=== PATIENT | female | born 1990 | race Caucasian/White ===

== ENCOUNTER → 2021-11-29 11:48 | Outpatient (BNVA) | payer OTHER, MEDICAID, SELFPAY | PROVIDERS: Visit Provider Advanced Practice Midwife ==

== ENCOUNTER → 2022-03-21 10:43 | Outpatient (BNVA) | payer OTHER, MEDICAID, SELFPAY | PROVIDERS: Visit Provider Advanced Practice Midwife | DX: Z30.017 Encounter for initial prescription of implantable subdermal contraceptive (principal); Z30.09 Encounter for other general counseling and advice on contraception | CPT/HCPCS: 11981 ==

== ENCOUNTER 2023-05-31 08:53 | Outpatient (AMB) | payer BC, MEDICAID, SELFPAY ==
--- NOTE | 2023-05-31 08:56 | A.OFFVIS_ITS ---
Intake Vital Signs 05/31/23 09:04 Height 5 ft 5 in Weight 209 lb BMI 34.8 BP 118/62 Blood Pressure Location Rt brachial Position Sitting Intake Visit Reasons: Consult Nexplanon removal Intake Note: Pt c/o: pt states the first year nexplonon didnt have any side effects but the last year she feels her hormones and emotions are up and down also having menses every other week Lead Bi Developer Required: No Accompanied by: Self / Same As Patient Allergies azithromycin [From Zithromax] Allergy (Unknown, Verified 05/31/23 09:04) ANAPHYLAXIS Penicillins Allergy (Unknown, Verified 05/31/23 09:04) ANAPHYLAXIS Medication List - Last Reconciled 05/31/23 by Elaine Gotti CNM buprenorphine ER (Sublocade) mg subcut etonogestrel (Nexplanon) subdermal Is last menstrual period known: Yes Last menstrual period: 05/30/23 HPI Consult Nexplanon removal HPI Details Patient wants to talk about taking her Nexplanon out. She has had 1 before and it was fine and the 1st year this 1 was in she did not get a period at all but now it is very irregular and scattered and she feels like it is really messing with her hormones. She has been seeing another physician in [place] who did some testing on her home in [place] and said that they were all off. She just does not want to get before she was using the Nexplanon and other hormonal methods of control she used to get very irregular periods that lasted 5 days she would feel little premenstrual ahead of time but she was fine with that. She is healthy otherwise her only other challenges weight gain she has trying very very hard to eat healthy and lose the weight but it does not seem to want to go off she works out at least 6 days a week. 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 She has been talking to her other doctor and she thinks that maybe it is time to go to a hormone free IUD. [facility] Surgical History Previous back surgery Family History Maternal Grandmother Cancer of unknown origin Social History Alcohol intake: never e-Cigarette/Vaping Use: Currently Using Sexual orientation: Straight/Heterosexual Gender identity: Female Female Reproductive History Menstrual Date of last menstrual period: 05/30/23 Total pregnancies: 2 Ab spontaneous: 0 Physical Exam Vital Signs: Last Vital Signs BP 118/62 05/31/23 09:04 BMI result Body Mass Index 34.8 Assessment & Plan Assessment & Plan (1) control counseling: Code(s): Z30.09 - Encounter for other general counseling and advice on contraception (2) Adverse reaction to hormonal drug: Code(s): T38.805A - Adverse effect of unspecified hormones and synthetic substitutes, initial encounter (3) Encounter for initial prescription of intrauterine contraceptive device (IUD): Code(s): Z30.014 - Encounter for initial prescription of intrauterine contraceptive device Plan Patient wants to talk about taking her Nexplanon out. She has had 1 before and it was fine and the 1st year this 1 was in she did not get a period at all but now it is very irregular and scattered and she feels like it is really messing with her hormones. She has been seeing another physician in [place] who did some testing on her home in [place] and said that they were all off. She just does not want to get . before she was using the Nexplanon and other hormonal methods of control, she used to get very irregular periods that lasted 5 days she would feel little premenstrual ahead of time but she was fine with that. She is healthy otherwise- her only other challenges weight gain she has trying very very hard to eat healthy and lose the weight but it does not seem to want to go off she works out at least 6 days a week. 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 She has been talking to her other doctor and she thinks that maybe it is time to go to a hormone free IUD. full discussion about the ParaGard IUD took place including side effects potential risks and issues with insertion. It would be important to put it in on her heaviest day of her period for which for her is day 1. She has been getting her period regularly. She is on day 2 of her period now however we still have to order the method after full discussion about the method and its side effects including heavier menses. She signed the insurance form to order a ParaGard. Also since she has not delivered a baby I am prescribing a misoprostol tablet to be place in her vagina on the morning of insertion. she normally uses tampons but on that day ever she will use a pad so that it does not interfere with the dissolving of the misoprostol prior to insertion discussed the purpose of it. I reviewed exactly how the exam and insertion process will go and after it is in and she is past that step we will schedule the Nexplanon removal there may be time needed for the hormone effect of the Nexplanon to wash out of her system and we did discuss this as well. Patient is happy with this plan. Medications: New misoprostol Place in vagina within 4 hours prior to planned IUD procedure 200 mcg vaginal ONCE 1 tab 0RF Coding Level of Care Code Est Pt Level 3 (51977) Diagnoses control counseling Z30.09 Adverse reaction to hormonal drug T38.805A Encounter for initial prescription of intrauterine contraceptive device (IUD) Z30.014
[2023-05-31 09:04] VITALS: BP 118/62; BMI 34.8
== END 2023-05-31 09:39 | disposition home or self-care (01) ==
LOC: HO.HWS 08:54
PROVIDERS: Visit Provider Advanced Practice Midwife
DX: Z30.09 Encounter for other general counseling and advice on contraception (principal); T38.805A Adverse effect of unspecified hormones and synthetic substitutes, initial encounter; Z30.014 Encounter for initial prescription of intrauterine contraceptive device
CPT/HCPCS: 99213

== ENCOUNTER → 2023-05-31 08:53 | Outpatient (BNVA) | payer BC, MEDICAID, SELFPAY | PROVIDERS: Visit Provider Advanced Practice Midwife ==

== ENCOUNTER 2023-06-28 13:48 | Outpatient (AMB) | payer BC, SELFPAY ==
--- NOTE | 2023-06-28 14:29 | A.OFFVIS_ITS ---
Intake Vital Signs 06/28/23 14:30 Height 5 ft 5 in Weight 212 lb BMI 35.3 BP 124/72 Intake Visit Reasons: Paragard insertion Intake Note: Patient states she also needs Nexplanon removed because she can't keep taking time from work. Head Of Marketing Analytics Required: No Information Interpreted: non-clinical & clinical Computer Systems Software Architect: Computer Systems Software Architect Present ([place]) Allergies azithromycin [From Zithromax] Allergy (Unknown, Verified 06/28/23 14:30) ANAPHYLAXIS Penicillins Allergy (Unknown, Verified 06/28/23 14:30) ANAPHYLAXIS Medication List - Last Reconciled 06/28/23 by Elaine Gotti CNM buprenorphine ER (Sublocade) mg subcut etonogestrel (Nexplanon) subdermal misoprostol 200 mcg vaginal ONCE Is last menstrual period known: Yes Last menstrual period: 06/27/23 Post menopausal: No Patient : No HPI Paragard insertion HPI Details Note this is a visit that was planned to be done with patients menses for insertion of ParaGard and then a subsequent visit is supposed to be planned for removal of the Nexplanon this visit was requested 3 and half weeks ago on 05/31/2023 and the ParaGard needed to be ordered.. Patient says she was told at the front office director and on the phone that they could both be done at the same time which is not usual and it which is not what was discussed at the last visit between the patient and myself patient very much wants to have them done if it all possible today and her priority is to get the Nexplanon taken out 1st because it is really messing with her hormones and she does not like how she feels both mood fisher and also with the irregular bleeding and waking she is sexually active and very much needs a method of reliable control and does not want to get . Started with her periods last night and it was heavier but it is very light today she put the misoprostol tablet in her vagina at 10:00 and she has had some cramping but not much but is not bleeding much. [facility] Surgical History Previous back surgery Family History Maternal Grandmother Cancer of unknown origin Social History Alcohol intake: never e-Cigarette/Vaping Use: Currently Using Sexual orientation: Straight/Heterosexual Gender identity: Female Female Reproductive History Menstrual Date of last menstrual period: 06/27/23 control method: implanted Physical Exam Vital Signs: Last Vital Signs BP 124/72 06/28/23 14:30 BMI result Body Mass Index 35.3 Office Procedures IUD Insert/Removal Details Details: ---Patient is here for her IUD removal and insertion. Bimanual exam was done. Her uterus is firm, nontender, and appropriate sized, and is midposition, w light menses and misoprostel table mostly undissolved . The cervix was swabbed with Betadine. Tenaculum was placed on the cervix slowly to minimize cramping. The uterus was sounded slowly and gently and showed a measurement of 7 cm. The IUD was removed from its package, after checking identifying information and lot dates and expiration dates and and gently inserted into the os, as per the IUD insertion procedure. The strings were then trimmed to 3- centimetres. The tenaculum was removed and gentle pressure applied with a swab, until any bleeding subsided from the tenaculum sites. The speculum was gently removed. The patient sat up. I Reviewed what to expect, and what indications would necessitate a call. Pt to call for fever, untoward pain or cramping. I reviewed any appropriate backup method. Pt to return for recheck as scheduled. [id number] Insertion Procedure code (CPT) selection complete Contraception Insert/Removal Details Details: Nexplanon Remova Procedure The patient was placed in a supine position with her non dominant hand resting under her head. The insertion site was located: 8-10cm from the medial epicondyle notch of the humerus, posterior to the sulcus, between the triceps and biceps muscle. The area of the previous implant was identified and the distal tip located. This area was cleansed with an alcohol prep and 3 ml of 1% Lidocaine on a 25 gauge needle and syringe was utilized for adequate anesthesia to the insertion site. After ascertaining adequate anesthesia, the area was prepped with Betadine solution. The skin over the distal tip was incised with a #11 blade scalpel and the capsule was located and entered freeing the implant from the canal. The implant was removed with a gentle tug using a mosquito clamp and removed intact. . Direct pressure was applied to the insertion site for hemostasis, minimal bleeding was observed, continued for several minutes only abating by pressure. Steri strips, Tegaderm covering, gauze pads, and La wrap dressing were secured with paper tape. A 2nd pressure wrap was also applied to try and maintain more pressure on the site and I instructed the patient to try an leave that there at leastt till dinner time before removing it --she can leave the Tegaderm dressing on then for at least 3 days to maintain sterility and ensure optimal closure and healing. The implant was palpable underneath the skin by myself and the patient. The patient tolerated the procedure well and left the office in good condition. 79995 - Removal Office Meds Bhargavi Chan 380A Performing Provider: Elaine Gotti CNM Administered by: MARCIA Starr on 06/28/23 15:49 Dose Route Admin Location Lot Number Expiration Date [facility] [employer] 1 device intrauterine [id number] 05/26/29 [id number] [employer] Assessment & Plan Assessment & Plan (1) Encounter for initial prescription of intrauterine contraceptive device (IUD): Code(s): Z30.014 - Encounter for initial prescription of intrauterine contraceptive device (2) control counseling: Code(s): Z30.09 - Encounter for other general counseling and advice on contraception (3) Adverse reaction to hormonal drug: Code(s): T38.805A - Adverse effect of unspecified hormones and synthetic substitutes, initial encounter (4) Encounter for Nexplanon removal: Code(s): Z30.46 - Encounter for surveillance of implantable subdermal contraceptive (5) Encounter for IUD insertion: Comment: ParaGard inserted 06/28/2023, same day as Nexplanon removal. Code(s): Z30.430 - Encounter for insertion of intrauterine contraceptive device Plan Patient had desired it all to be done today though that was not the plan as per what was discussed at the last visit. However the patient voiced strong desire to have this done today if at all possible so since her priority was the Nexplanon removal we did that 1st. At that time there was a change in the schedule and we then proceeded to the ParaGard insertion patient did find the passage of the sound and the it IUD painful but she did not have a vasovagal response. The ParaGard IUD was inserted smoothly without trauma into a 7 cm cervix the internal os was still somewhat tight having not responded too much to the misoprostol tablet which was softened but not dissolved. Patient is to keep the pressure dressing on the Nexplanon removal site for several hours and then she can remove that 1 layer at a time there are 2 layers- and leave the Tegaderm on then for the next 3 days to maintain sterility.\ We will see her in 6 weeks to check on the IUD and also to check on the Nexplanon removal site. Discussed care of menses with Bhargavi insight I recommend no condoms and no sex for this week. In the future if her vagina is dry at the end of a menses I recommend wetting her clean finger to help will vagina as she removes tampons to avoid out with the tampon. Orders: Orders AMB IUD Insertion/Removal - Practice Supplied Today Z30.430 - Encounter for insertion of intrauterine contraceptive device AMB Nexplanon/Implanon Insertion - Patient Supply Today T38.805A - Adverse effect of unspecified hormones and synthetic substitutes, initial encounter, Z30.014 - Encounter for initial prescription of intrauterine contraceptive device, Z30.09 - Encounter for other general counseling and advice on contraception, Z30.46 - Encounter for surveillance of implantable subdermal contraceptive Coding Level of Care Code Est Pt Level 4 (16249) Diagnoses Encounter for initial prescription of intrauterine contraceptive device (IUD) Z30.014 control counseling Z30.09 Adverse reaction to hormonal drug T38.805A Encounter for Nexplanon removal Z30.46 Encounter for IUD insertion Z30.430 CPT Codes Details - CPT: 09686-OQA Insertion ([id number]) Details - Contraception: 52120 - Removal ([id number])
[2023-06-28 14:30] VITALS: BP 124/72; BMI 35.3
== END 2023-06-28 15:58 | disposition home or self-care (01) ==
PROVIDERS: Visit Provider Advanced Practice Midwife
DX: Z30.430 Encounter for insertion of intrauterine contraceptive device (principal); Z30.46 Encounter for surveillance of implantable subdermal contraceptive
CPT/HCPCS: 11982; 58300

== ENCOUNTER → 2023-06-28 13:48 | Outpatient (BNVA) | payer BC, SELFPAY | PROVIDERS: Visit Provider Advanced Practice Midwife | DX: Z30.430 Encounter for insertion of intrauterine contraceptive device (principal); Z30.46 Encounter for surveillance of implantable subdermal contraceptive | CPT/HCPCS: 11982; 58300; J7300 ==

== ENCOUNTER 2024-03-03 21:23 | Emergency (ER) | payer BC, SELFPAY ==
--- NOTE | 2024-03-03 | ECG_ITS ---
Test Reason : CHEST PAIN Blood Pressure : / mmHG Vent. Rate : 100 BPM Atrial Rate : 100 BPM P-R Int : 150 ms QRS Dur : 092 ms QT Int : 356 ms P-R-T Axes : 043 016 067 degrees QTc Int : 459 ms Artifact Normal sinus rhythm Nonspecific T wave changes Abnormal ECG When compared with ECG of 19-DEC-2009 00:18, Nonspecific T wave abnormality now evident in Lateral leads Referred By: Generic ED Physician Electronically Signed By:Herminio Will
[2024-03-03 21:29] VITALS: BP 149/77; PULSE 100; RESP 18; TEMP 37; O2SAT 100; BMI 33.5
[2024-03-03 22:09] LABS: MANUAL DIFF FLAG NO
[2024-03-03 22:17] LABS: Basophils Percent Auto 0.3 % (0-2); Eosinophils Absolute Auto 0.4 X10*3/uL (0.0-0.4); Eosinophils Percent Auto 4.2 % (0-4); Hemoglobin 12.3 g/dl (12.0-16.0); Imm Gran Abs Auto 0.02 X10*3/uL (0.00-0.03); Imm Gran Pct Auto 0.2 % (0.0-0.4); Lymphocytes Absolute Auto 2.5 X10*3/uL (1.2-4.9); Lymphocytes Percent Auto 26.9 % (20-40); Mean Corpuscular HGB Conc 33.2 g/dl (31.0-35.0); Mean Corpuscular Hemoglobin 28.8 pg (27.0-33.0); Mean Corpuscular Volume 86.7 fL (80.0-98.0); Mean Platelet Volume 10.4 fL (9.4-12.3); Monocytes Absolute Auto 0.7 X10*3/uL (0.1-1.2); Monocytes Percent Auto 7.9 % (2-11); Neutrophils Absolute Auto 5.6 x10*3/uL (2.0-8.3); Neutrophils Percent Auto 60.5 % (45-73); Platelet Count 285 X10*3/uL (160-400); Red Blood Count 4.27 X10*6/uL (4.20-5.50); Red Cell Distribution Width 12.9 % (11.0-16.0); White Blood Count 9.2 X10*3/uL (4.8-10.8)
[2024-03-03 22:25] LABS: Alanine Aminotransferase 32 U/L (0-31); Albumin Level 4.3 g/dL (3.5-5.0); Alkaline Phosphatase 67 U/L (39-117); Anion Gap 13 (12-20); Aspartate Amino Transferase 79 U/L (5-31); Bilirubin Total 0.4 mg/dL (0.0-1.0); Blood Urea Nitrogen 6 mg/dL (9-16); Calcium 9.6 mg/dL (8.4-10.2); Carbon Dioxide 28 mmol/L (22-29); Chloride 107 mmol/L (96-108); Creatinine Clr Calc Pharmacy 121.6; Estimated Glomerular Filt Rate > 60; Glucose Random 91 mg/dL (60-115); Magnesium 1.9 mg/dL (1.6-2.6); Potassium 4.5 mmol/L (3.3-5.1); Sodium 143 mmol/L (135-145); Total Protein 7.2 g/dL (6.5-8.0)
[2024-03-03 22:32] LABS: Troponin-I High Sensitivity < 2.7 ng/L (<3.5-17.0)
[2024-03-03 22:54] LABS: Influenza A PCR NEGATIVE (Negative); Influenza B PCR NEGATIVE (Negative); Resp Syncy Virus RNA Qual PCR NEGATIVE (Negative); SARS COV2 PCR INHOUSE NEGATIVE (Negative)
== END 2024-03-04 00:31 | disposition left against medical advice (07) ==
PROVIDERS: Emergency Provider Emergency Medicine
DX: R07.9 Chest pain, unspecified (principal); Z11.52 Encounter for screening for COVID-19
CPT/HCPCS: 0241U; 80053; 83735; 84484; 85025; 93005; 99283

== ENCOUNTER → 2024-03-03 21:24 | Outpatient (BNV) | payer BC, SELFPAY | PROVIDERS: Emergency Provider Emergency Medicine; Visit Provider Internal Medicine Cardiovascular Disease | DX: R94.31 Abnormal electrocardiogram [ECG] [EKG] (principal) | CPT/HCPCS: 93010 ==

== ENCOUNTER 2024-06-10 17:44 | Emergency (ER) | payer BC, SELFPAY ==
--- NOTE | ~2024-06-10 | CT_ITS ---
EXAMINATION: CT ABDOMEN AND PELVIS WITH CONTRAST CLINICAL INFORMATION: Right lower abdominal pain. COMPARISON: None available. TECHNIQUE: Multidetector volumetric images were obtained from the superior aspect of the liver through the pubic symphysis following administration 85 mL of Omnipaque 350 intravenous contrast. Sagittal and coronal reformatted images were obtained on the technologist's workstation. Oral contrast: No This CT examination was performed using dose optimization techniques as appropriate, variously including the following: *Automated exposure control *Adjustment of mA and/or kV according to patient size (this includes techniques or standardized protocols for targeted exams where dose is matched to indication/reason for exam; i.e. extremities or head) *Use of iterative reconstruction technique DLP: 85 mGy-cm FINDINGS: LUNG BASES: The visualized lung bases are unremarkable. LIVER, GALLBLADDER, AND BILIARY TREE: The liver is normal in size, shape, and attenuation. No focal hepatic lesion or biliary ductal dilatation is present. The gallbladder is unremarkable with no evidence of radiopaque gallstones, gallbladder wall thickening, or obvious pericholecystic inflammatory changes. PANCREAS: Unremarkable. SPLEEN: Unremarkable. ADRENAL GLANDS: Unremarkable. KIDNEYS AND URETERS: The kidneys are normal in size, shape, and attenuation. No hydronephrosis, hydroureter, or calculi seen. No perinephric stranding. Contrast material is present in the renal collecting systems which limits sensitivity for punctate calculi. BLADDER: Unremarkable. GASTROINTESTINAL TRACT: Stomach, small bowel, and colon are normal in caliber. No bowel wall thickening or surrounding inflammatory changes. Moderate volume stool is present in the colon. Appendix is normal. No intraperitoneal free fluid or free air. ABDOMINAL WALL: Tiny fat-containing umbilical hernia. No bowel involvement. LYMPH NODES: Multiple surgical clips are present in the left hemipelvis. No appreciable adenopathy. VASCULAR: Unremarkable. PELVIC VISCERA: IUD is present in the uterus. Uterus normal in size. No adnexal lesions. OSSEOUS STRUCTURES: Status post lumbosacral fusion. No acute osseous findings. Mild degenerative disc disease in the lower thoracic spine. Mild osteoarthritis in the hips and SI joints. CT/CT abdomen pelvis w IV con IMPRESSION: 1. No acute intra-abdominal or intrapelvic abnormalities. Normal appendix. 2. Moderate volume of stool in the colon.
[2024-06-10 17:48] VITALS: BP 166/94; PULSE 96; RESP 16; TEMP 36.8; O2SAT 100; BMI 29.0
--- NOTE | 2024-06-10 18:33 | ED_ITS ---
HPI - Abdominal Pain General Chief Complaint: Abdominal Pain Stated Complaint: LRQ abd pain Time Seen by Provider: 06/10/24 23:05 Source: patient, RN notes reviewed and old records reviewed Mode of arrival: ambulatory Limitations: no limitations History of Present Illness ED Provider: Chidi COCHRAN narrative: 33-year-old female who denies any past medical history presents for evaluation of abdominal pain. Patient reports while on vacation in [place] she was experiencing mild right lower abdominal pain. The pain has been worsening. She reports associated nausea and chills. She denies any urinary frequency, burning with urination, vaginal bleeding or discharge She reports that she has an IUD Her pain is a 6/10, constant but worse with movement Related Data Home Medications ?Medication ?Instructions ?Recorded ?Confirmed buprenorphine 100 mg/0.5 mL mg subcut 05/31/23 06/28/23 solution,exten.rel.subcutaneous syringe (Sublocade) etonogestrel 68 mg subdermal subdermal 05/31/23 06/28/23 implant (Nexplanon) Previous Rx's ?Medication ?Instructions ?Recorded misoprostol 200 mcg tablet 200 mcg vaginal ONCE #1 tab 05/31/23 peg 3350-electrolytes 236 240 ml PO Q10M #4,000 mL 06/11/24 gram-22.74 gram-6.74 gram-5.86 gram solution (GaviLyte-G) Allergies Allergy/AdvReac Type Severity Reaction Status Date / Time azithromycin [From Zithromax] Allergy Unknown ANAPHYLAXIS Verified 06/10/24 17:49 Penicillins Allergy Unknown ANAPHYLAXIS Verified 06/10/24 17:49 Review of Systems Constitutional: Denies body ache(s), Reports chills, Denies fever(s), Denies frequent falls and Denies headache(s) Eyes: Denies blurry vision Denies vertigo, Denies dizziness and Denies headache(s) Cardiovascular: Denies chest pain and Denies dyspnea Respiratory: Denies cough and Denies dyspnea Gastrointestinal: Reports abdominal pain, Reports nausea and Denies vomiting Genitourinary: Denies abnormal menses, Denies dysuria, Denies pelvic pain, Denies flank pain and Denies vaginal discharge Musculoskeletal: Denies back pain Skin/Breast: Denies rash Denies vertigo, Denies dizziness, Denies frequent falls and Denies headache(s) [facility] Past Medical History Surgical History Previous back surgery Family History Family History Maternal Grandmother Cancer of unknown origin Social History Social History Alcohol intake: never Smoked in Last 30 Days: No e-Cigarette/Vaping Use: Currently Using Use of substances other than those prescribed or required for medical reasons: No Advance Directives: No Advance Directives Information Provided: No Patient : No Sexual orientation: Straight/Heterosexual Gender identity: Female Physical Exam ED Vital Signs: Vital Signs - 24 hr 06/10/24 17:48 06/10/24 21:18 06/11/24 00:14 Temperature 98.2 F 98.0 F 97.8 F Pulse Rate 96 81 82 Respiratory Rate 16 12 14 Blood Pressure 166/94 H 126/88 108/60 Pulse Oximetry 100 100 99 Oxygen Delivery Method Room Air Room Air Room Air BMI result Body Mass Index 29.0 Const General: healthy appearing, comfortable, no acute distress, alert and awake Nutritional Appearance: well nourished Orientation/consciousness: patient oriented x3 HENMT Head: Yes normocephalic and Yes atraumatic Eyes Eyelids: Yes eyelids normal Conjunctivae: conjunctivae normal Sclerae: sclerae normal Corneas: corneas normal Pupils: Equal, round and reactive pupils present EOM: EOMs intact bilaterally Neck Neck: Yes full ROM Resp Effort & Inspection: normal respiratory effort, able to speak in complete sentences and not labored Cardio Rate: regular rate Rhythm: regular rhythm GI Other: Tenderness to palpation of the right lower quadrant with rebound tenderness to the right lower quadrant during palpation of the left lower quadrant Inspection: No distended Palpation (GI): Soft to palpation, not firm, Tenderness to palpation present (GI) in the RLQ, Guarding due to palpation present (GI) and not rigid Auscultation: normoactive bowel sounds Skin General skin exam: elasticity normal Neuro General: patient oriented x3 Cranial nerves: Yes Equal, round and reactive pupils present and Yes Bilaterally intact EOM present Cognition (Neuro): normal cognition Extrem Other: Moving all extremities well without any obvious deformities Course Course Course Narrative: This is an RME done by FELTON Garcia: Additional HPI, ROS, PE not included below will be deferred to primary provider. 33-year-old female presents with right lower quadrant pain for the past 3 days with anorexia, nausea worsening. Was seen at urgent care and told to come into the emergency department. On exam right lower quadrant discomfort Medical Decision Making Medical Decision Making [facility] Narrative: Patient has had 3 days of right lower quadrant abdominal pain with associated GI symptoms of nausea. She states that she had diarrhea 1 time when she 1st began to have pain. Her vital signs are within normal limits, she is not septic. Her white count is within normal limits. However given her level of discomfort, location of the pain with rebound tenderness, plan for CT scan of the abdomen pelvis to evaluate for acute appendicitis. Patient does have 21-50 white cells and a urinalysis with moderate esterase, no evidence of contamination. She has no symptoms at this time Differential Diagnosis Differential Diagnoses: The differential diagnosis associated with the presentation includes Abdominal pain Acute appendicitis Constipation Diverticulitis UTI Obstructive uropathy Lab Data [facility] Lab Attestation statement: I reviewed the patient's lab results. No leukocytosis or anemia. Normal platelet count. No electrolyte abnormalities. The patient is not 06/10/24 18:49 06/10/24 18:49 Labs: Lab Results 06/10/24 Range/Units 18:49 WBC 5.5 (4.8-10.8) X10*3/uL RBC 4.40 (4.20-5.50) X10*6/uL Hgb 12.8 (12.0-16.0) g/dl Hct 37.8 (37.0-47.0) % MCV 85.9 (80.0-98.0) fL MCH 29.1 (27.0-33.0) pg MCHC 33.9 (31.0-35.0) g/dl RDW 12.8 (11.0-16.0) % Plt Count 310 (160-400) X10*3/uL MPV 10.0 (9.4-12.3) fL Immature Gran % (Auto) 0.2 (0.0-0.4) % Neut % (Auto) 47.2 (45-73) % Lymph % (Auto) 43.2 H (20-40) % [place] % (Auto) 6.0 (2-11) % Eos % (Auto) 2.9 (0-4) % Baso % (Auto) 0.5 (0-2) % Lymph # (Auto) 2.4 (1.2-4.9) X10*3/uL [place] # (Auto) 0.3 (0.1-1.2) X10*3/uL Eos # (Auto) 0.2 (0.0-0.4) X10*3/uL Baso # (Auto) 0.0 (0.0-0.2) X10*3/uL Abs Immat Gran (auto) 0.01 (0.00-0.03) X10*3/uL Absolute Neuts (auto) 2.6 (2.0-8.3) x10*3/uL Absolute Nucleated RBC 0.000 (0.0-0.012) X10*3/uL Nucleated RBC % (auto) 0.0 (0.0-0.2) /100WBC Sodium 141 (135-145) mmol/L Potassium 4.0 (3.3-5.1) mmol/L Chloride 105 (96-108) mmol/L Carbon Dioxide 29 (22-29) mmol/L Anion Gap 11 L (12-20) BUN 4 L (9-16) mg/dL Creatinine 0.64 (0.5-1.4) mg/dL Estim Creat Clear Calc 122.9 Estimated GFR > 60 Random Glucose 85 (60-115) mg/dL Calcium 9.3 (8.4-10.2) mg/dL Magnesium 1.9 (1.6-2.6) mg/dL Total Bilirubin 0.4 (0.0-1.0) mg/dL AST 18 (5-31) U/L ALT 8 (0-31) U/L Alkaline Phosphatase 64 (39-117) U/L Total Protein 7.3 (6.5-8.0) g/dL Albumin 4.3 (3.5-5.0) g/dL Lipase 13 (8-78) U/L Beta HCG, Quant < 2 mIU/mL Urine Color Yellow Urine Appearance Clear Urine pH 6.5 (5.0-9.0) Ur Specific [place] <= 1.005 (1.005-1.025) Urine Protein Negative (Neg-Trace) mg/dL Urine Glucose (UA) Negative (Negative) mg/dL Urine Ketones Negative (Negative) mg/dL Urine Blood Negative (Negative) Urine Nitrite Negative (Negative) Ur Leukocyte Esterase Moderate (2+) H (Negative) Urine RBC 0-2 (0-2) /HPF Urine WBC 21-50 H (0-5) /HPF Ur Squamous Epith Cells 3-5 (0-2) /HPF Urine Bacteria None Seen (None Seen) Hyaline Casts 0-2 (0-2) /LPF Urine Test NEGATIVE (NEGATIVE) Independent Interpretation I performed an independent interpretation of an: CT Scan Interpretation: Agree with Radiology interpretation, moderate stool burden specifically in the right abdomen Radiology Impression Discussion of test interpretation with radiology: I have reviewed the radiologist's reading. Radiologist Impression: CT/CT abdomen pelvis w IV con IMPRESSION: 1. No acute intra-abdominal or intrapelvic abnormalities. Normal appendix. 2. Moderate volume of stool in the colon. Medications Administered Discontinued Medications Generic Name Dose Route Start Last Admin Trade Name Freq PRN Reason Stop Dose Admin Sodium Chloride 1,000 mls @ 999 mls/hr 06/10/24 23:15 06/10/24 23:34 Ns IV 06/11/24 00:15 999 mls/hr .Q1H1M MARIANO Administration Iohexol 85 ml 06/10/24 23:56 06/10/24 23:56 Iohexol 350 Mg/Ml 100 Ml Infus..Btl IV 06/10/24 23:57 85 ml ONCE ONE Administration Ketorolac Tromethamine 30 mg 06/10/24 23:09 06/10/24 23:34 Ketorolac Tromethamine 30 Mg/Ml Vial IVPUSH 06/10/24 23:10 30 mg ONCE ONE Administration Ondansetron HCl 4 mg 06/10/24 23:09 06/10/24 23:34 Ondansetron Hcl 4 Mg/2 Ml Vial IVPUSH 06/10/24 23:10 4 mg ONCE ONE Administration Discharge Plan Discharge Clinical Impression: Constipation Patient Disposition: Home, Self-Care Instructions: Constipation (ED), High Fiber Diet (ED) Additional Instructions: Your workup showed moderate constipation, specifically on the right abdomen where your pain is I recommend that you continue the stool softener, increase fiber in your diet or use fiber supplementation Increase water intake You may use the GoLYTELY as prescribed Follow-up with GI for chronic constipation Return for new or worsening symptoms Prescriptions: New peg 3350-electrolytes [GaviLyte-G] 236-22.74-6.74 -5.86 gram recon soln 240 ml PO Q10M Qty: 4000 0RF Rx Instructions: until fecal effluent is clear No Action Sublocade 100 mg/0.5 mL solution, extended rel syringe subcut Nexplanon 68 mg implant subdermal misoprostol 200 mcg tablet 200 mcg vaginal ONCE Qty: 1 0RF Rx Instructions: Place in vagina within 4 hours prior to planned IUD procedure Referrals: Ricardo Hollis MD [Physician] - (chronic constipation) Stand Alone Forms: Work/School Release Print Language: Khmer
[2024-06-10 19:00] LABS: MANUAL DIFF FLAG NO
[2024-06-10 19:01] LABS: Basophils Percent Auto 0.5 % (0-2); Eosinophils Absolute Auto 0.2 X10*3/uL (0.0-0.4); Eosinophils Percent Auto 2.9 % (0-4); Hematocrit 37.8 % (37.0-47.0); Hemoglobin 12.8 g/dl (12.0-16.0); Imm Gran Abs Auto 0.01 X10*3/uL (0.00-0.03); Imm Gran Pct Auto 0.2 % (0.0-0.4); Lymphocytes Absolute Auto 2.4 X10*3/uL (1.2-4.9); Lymphocytes Percent Auto 43.2 % (20-40); Mean Corpuscular HGB Conc 33.9 g/dl (31.0-35.0); Mean Corpuscular Hemoglobin 29.1 pg (27.0-33.0); Mean Corpuscular Volume 85.9 fL (80.0-98.0); Monocytes Absolute Auto 0.3 X10*3/uL (0.1-1.2); Neutrophils Absolute Auto 2.6 x10*3/uL (2.0-8.3); Neutrophils Percent Auto 47.2 % (45-73); Platelet Count 310 X10*3/uL (160-400); Red Cell Distribution Width 12.8 % (11.0-16.0); White Blood Count 5.5 X10*3/uL (4.8-10.8)
[2024-06-10 19:03] LABS: Appearance Urine Clear; Color Urine Yellow; Glucose Urine UA Negative (Negative); Leukocyte Esterase Urine Moderate (2+) (Negative); Nitrite Urine Negative (Negative); PH 6.5 (5.0-9.0); Specific Gravity - Urine <= 1.005 (1.005-1.025); UMIC TRIGGER UACC YES; UPreg QC Valid YES; Urine Blood Negative (Negative); Urine Ketones Negative (Negative); Urine Pregnancy NEGATIVE (NEGATIVE); Urine Protein Negative (Neg-Trace)
[2024-06-10 19:05] LABS: Bacteria Urine None Seen (None Seen); Hyaline Casts Urine 0-2 /LPF (0-2); RBC Urine 0-2 /HPF (0-2); UACC Culture Trigger YES; WBC Urine 21-50 /HPF (0-5)
[2024-06-10 19:31] LABS: Alanine Aminotransferase 8 U/L (0-31); Albumin Level 4.3 g/dL (3.5-5.0); Alkaline Phosphatase 64 U/L (39-117); Anion Gap 11 (12-20); Aspartate Amino Transferase 18 U/L (5-31); Bilirubin Total 0.4 mg/dL (0.0-1.0); Blood Urea Nitrogen 4 mg/dL (9-16); Calcium 9.3 mg/dL (8.4-10.2); Carbon Dioxide 29 mmol/L (22-29); Chloride 105 mmol/L (96-108); Creatinine Clr Calc Pharmacy 122.9; Estimated Glomerular Filt Rate > 60; Glucose Random 85 mg/dL (60-115); Lipase 13 U/L (8-78); Magnesium 1.9 mg/dL (1.6-2.6); Sodium 141 mmol/L (135-145); Total Protein 7.3 g/dL (6.5-8.0)
[2024-06-10 19:38] LABS: HCG Quantitative < 2 mIU/mL
[2024-06-10 21:18] VITALS: BP 126/88; PULSE 81; RESP 12; TEMP 36.7; O2SAT 100
[2024-06-10] MEDS: Ketorolac Tromethamine 30 MG/ML VIAL IVPUSH (23:34)
[2024-06-10] MEDS: ondansetron HCL 4 MG/2 ML VIAL IVPUSH (23:34)
[2024-06-10] MEDS: 0.9 % Sodium Chloride 1,000 ML 999 ML IV (23:34)
[2024-06-10] MEDS: iohexoL 350 MG/ML 100 ML INFUS..BTL 85 ML IV (23:56)
[2024-06-11 00:14] VITALS: BP 108/60; PULSE 82; RESP 14; TEMP 36.6; O2SAT 99
[2024-06-11 01:43] VITALS: BP 112/68; PULSE 78; RESP 16; TEMP 36.6; O2SAT 99
== END 2024-06-11 01:40 | disposition home or self-care (01) ==
PROVIDERS: Physician Assistant; Emergency Provider Internal Medicine
DX: R10.31 Right lower quadrant pain (principal); K59.00 Constipation, unspecified; R10.2 Pelvic and perineal pain; R11.0 Nausea; Z79.899 Other long term (current) drug therapy
CPT/HCPCS: 36415; 74177; 80053; 81001; 81003; 81025; 83690; 83735; 84702; 85025; 87086; 96361; 96374; 96375; 99284; J1885; J2405; Q9967

== ENCOUNTER 2024-08-04 10:55 | Outpatient (AMB) | payer BC, SELFPAY ==
--- NOTE | 2024-08-04 10:58 | A.OFFPC_ITS ---
Vital Signs 08/04/24 11:03 Height 5 ft 4 in Weight 159 lb 6 oz BMI 27.4 BP 98/64 Blood Pressure Location Rt brachial Position Sitting Respiration 13 Pulse 83 Pulse Source Pulse Oximeter Pulse Oximetry (%) 98 Oxygen Delivery Method Room Air Intake Visit Reasons: CHEMIST ENZYMES-Requesting Physical Exam Intake Note: new patient to establish care Allergies azithromycin [From Zithromax] Allergy (Unknown, Verified 08/04/24 11:32) ANAPHYLAXIS Penicillins Allergy (Unknown, Verified 08/04/24 11:32) ANAPHYLAXIS Medication List - Last Reconciled 08/04/24 by Socorro Patten, OVEN OPERATOR- diclofenac sodium 50 mg PO Q12H PRN semaglutide (weight loss) 1 mg subcut Q7D Tobacco use date assessed: 08/04/24 Dental Screening Dental Screen Date: 08/04/24 Did you have a dental visit in the last 12 months?: No Did you have a dental problem in the last 6 months where you did not have access to dental care?: No Was dental information given to patient?: No HPI HPI Comments History of Present Illness Details 33-year-old female with currently cigare tte use, constipation, umbilical hernia, 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 Tdap today, declined flu. Specialists: HVAC CONTROLS TECHNICIAN has [facility] Counseling Here today as a new patient. To est care. and for a CPE. Has been feeling sick with sore throat, congestion, headache for the last week. Associated w low energy. Used otc cold medication to help w/ short lived relief. COVID negative. Denies fever, cough. Feeling better since onset. Has missed work. MDD/CATIA feeling sad, not currently in counseling was in the past. Was on meds in the past. Stopped as she didnt have a Dr. Cannot remember what she was taking. Vapes currently IVDA in Remission 13 years, was on subaxone, off 3 months ago, managed [facility] Does not know if she has ever had echo. Not active w/ GI for Hep C. chronic back pain s/p fusion using advil does not help at all intentional wt loss w/ GLP 1 semaglutide lost 70 lbs unsure of dose outside prescriber has changing mole back of right lower leg. chronic constipation; on daily meds w/o relief. Even PEG did not help. Plan screening labs today, if normal, start antidepressant. refer to [facility] for counseling and financial insecurity Refer to GI for Hep C treatment Refer to pain mgmt for chronic back pain Start diclofenac er 50mg po BID Check echo for hx of IVDA Lactulose PRN constipation. RTO 6 weeks to f/u on escitalopram 5mg start to help MDD and CATIA, sooner PRN Supportive care for URI An additional 30 was spent addressing the problem(s) noted at todays visit. This includes time spent before the visit reviewing the chart, time spent during the visit, and time spent after the visit on documentation This note is constructed using voice recognition software. While every effort has been made to ensure accuracy in wall and floor tiler, still errors may have been included Sometimes, these errors may affect the content or meaning of the given sentence . [facility] Medical History (Updated 08/04/24 @ 18:33 by [facility]A [facility]) Spine disorder Arthritis Anxiety and depression GERD (gastroesophageal reflux disease) Surgical History Previous back surgery Family History (Updated 08/04/24 @ 11:03 by Chava Antonio MA) Maternal Grandmother Cancer of unknown origin Mother Mental health disorder Substance abuse Social History (Updated 08/04/24 @ 11:02 by Chava Antonio MA) Household Members: Significant Other and Other Household Members Other:: stepson Housing: House Are you a primary lawn care professional to a significant other at home: Yes Do you presently have visiting nurse or other home services: No Alcohol intake: never Patient Tobacco Use Status: Never used Tobacco e-Cigarette/Vaping Use: Currently Using service: No Current occupational status: employed Current occupation: manufacture Sexual orientation: Straight/Heterosexual Gender identity: Female Cognitive needs: Yes Hearing needs: No Vision needs: No Questionnaire PHQ-9 Over the last 2 weeks, how often have you been bothered by any of the following problems? 1. Little interest or pleasure in doing things: several days 2. Feeling down, depressed, or hopeless: several days 3. Trouble falling or staying asleep, or sleeping too much: nearly every day 4. Feeling tired or having little energy: more than half the days 5. Poor appetite or overeating: more than half the days 6. Feeling bad about yourself - or that you are a failure or have let yourself or your family down: not at all 7. Trouble concentrating on things, such as reading the newspaper or watching television: not at all 8. Moving or speaking so slowly that other people could have noticed. Or the opposite - being so fidgety or restless that you have been moving around a lot more than usual: not at all 9. Thoughts that you would be better off or of hurting yourself in some way: not at all Total score: 9 Depression Screening Interpretation: Positive Depression Screening Follow-up: Existing condition and Community Mental Health Worker F/U Depression Screening Done: Yes 56091 - PHQ-9 Billing: Yes Source: Developed by Drs. Ricardo Granados, Danae Potts, Jh Valles and colleagues, with an educational arsenio from [employer]. Thrive Questionnaire Date Thrive assessed: 08/04/24 I am a: Patient What is your living situation today?: I have a steady place to live Within the past 12 months, did the food you bought not last and you didn't have the money to get more?: Sometimes True Within the past 12 months, did you worry whether your food would run out before you got money to buy more?: Sometimes True Do you have trouble paying for medicines?: Yes Do you have trouble getting transportation to medical appointments?: No Do you have trouble paying your heating and electricity bill?: No Do you have trouble taking care of your child, family member or friend?: No Do you have trouble with day-to-day activities such as bathing, preparing meals, shopping, managing finances, etc.?: No Are you currently unemployed and looking for a job?: No Are you interested in more education?: No Please select the resources that you would like help with: None Currently or been in a relationship where the following occur: No concerns reported THRIVE Score: 2 AUDIT C Alcohol Use Questionnaire (AUDIT-C) 1. How often do you have a drink containing alcohol?: Never 3. How often do you have six or more drinks on one occasion?: Never Total Score: 0 Score Reviewed/Action Taken: Yes CATIA-7 AMB Questionnaire CATIA-7 Date CATIA - 7 assessed: 08/04/24 Feeling nervous, anxious, or on edge: 2 = More than half the days Not being able to stop or control worryin = Several days Worrying too much about different things: 2 = More than half the days Trouble relaxin = Not at all Being so restless that it is hard to sit still: 0 = Not at all Becoming easily annoyed or irritable: 2 = More than half the days Feeling afraid as if something awful might happen: 0 = Not at all Total CATIA-7 score (0-4 normal; 5-9 mild; 10-14 moderate; 15-21 severe): 7 Source: Developed by Drs. Ricardo Granados, Danae Potts, Jh Valles and colleagues, with an educational arsenio from [employer]. CATIA-7 Assessment Billing CATIA-7 Assessment Tool: CATIA-7 Assessment 76175 Physical exam (Primary Care) Vital Signs: Last Vital Signs Pulse 83 08/04/24 11:03 Resp 13 08/04/24 11:03 BP 98/64 08/04/24 11:03 Pulse Ox 98 08/04/24 11:03 Oxygen Delivery Method Room Air 08/04/24 11:03 BMI result Body Mass Index 27.4 BMI Assessment/Plan discussion: High BMI High, discussed plan: lifestyle Tobacco/Smoking Status: Tobacco use Status Tobacco use date assessed 08/04/24 08/04/24 11:05 Patient Tobacco Use Status Never used Tobacco 08/04/24 11:05 e-Cigarette/Vaping Use Currently Using 08/04/24 11:05 Are you ready to quit: No Tobacco cessation counseling provided: Yes Items discussed: Other Relapse Prevention: discussed the importance of a supportive environment, discussed extending NRT, discussed negative mood or depression after quitting, weight gain after smoking is common and discussed dietary, exercise and/or lifestyle changes Number of minutes spent counselin CPT code: 49287 - 4-10 Minutes PHQ-9: PHQ-9 Score PHQ-9: Total score 9 08/04/24 13:30 Depression Screening Interpretation: Positive Depression Screening Follow-up: E xisting condition and Community Mental Health Worker F/U Thrive Assessment: Date of Thrive Assessment Date Thrive assessed 08/04/24 08/04/24 11:15 Currently or been in a relationship where the following occur: No concerns reported Const Other: General: Well developed, well nourished, in no acute distress. Appears stated age. Head: Normocephalic, atraumatic. Eyes: Pupils are equal, round and reactive to light and accommodation. Conjunctivae are clear. Vision grossly normal. Ears: TMs clear AU, EACS WNL Nose: Patent, without discharge. Mouth: There are no ulcers or lesions noted. No inflammation, no post nasal drip, no plaques nor exudates. Neck: Supple, no adenopathy or thyromegaly. Lungs: Clear to auscultation bilaterally. No rales, rhonchi or wheeze noted. Good air flow in all negron. Heart: Regular rate and rhythm. No murmurs, click, rubs or gallops are noted. Abdomen: Bowel sounds present in all quadrants hypoactive. The abdomen is soft, nontender, with no masses or organomegaly noted. No hernias are noted. Musculoskeletal: Joints are nontender, without swelling, redness, or effusions. Range of motion is observed to be normal. Pulses: Peripheral pulses are equal and palpable bilaterally. Extremities: No clubbing, cyanosis nor edema is noted. Neurologic: Gait and station normal. Cranial Nerves 2-12 intact. Motor strength grossly symmetrical and intact. No sensory loss. Balance normal. Skin: No rashes, ulcers, or lesions noted. Turgor is good. Skin color is good. Hair and nails are without abnormalities. Posterior right lower leg is a dark brown flat nevi with central clearing Psych: Normal eye contact, affect and mood appropriate, and normal interactions. Patient is alert and appropriate to context. Immunizations Boostrix Tdap 2.5 Lf unit-8 mcg-5 Lf/0.5 mL intramuscular syringe Performing Provider: BRITTANIE Engel [place] [facility] [facility] Administered by: Elaine Jaquez RN on 08/04/24 11:41 Dose Route Admin Location Dispensed Lot Number Expiration Date NDC Squirrel Worker 0.5 mL IM Right Deltoid 0.5 mL [id number] 07/25/25 [id number] [employer] VIS Given Date VIS Provided VIS Publication Date 08/04/24 Single Vaccine 21 Eligibility Eligibility Date Funding Source Not [facility] Eligible 08/04/24 Private Coding Level of Care Code New Pt Level 3 (27536) New Pt Prev Care 18-39yr(84374 Diagnoses Encounter for general adult medical examination with abnormal findings Z00.01 Mild episode of recurrent major depressive disorder F33.0 Major depression episode severity: mild Laboratory exam ordered as part of routine general medical examination Z00.00 CATIA (generalized anxiety disorder) F41.1 Encounter for screening involving social determinants of health (SDoH) Z13.9 Chronic hepatitis C without hepatic coma B18.2 Viral hepatitis chronicity: chronic Hepatic coma status: without hepatic coma History of intravenous drug abuse Z87.898 Fusion of lumbosacral spine M43.27 Chronic midline low back pain without sciatica M54.50; G89.29 Back pain location: low back pain Back pain laterality: midline Sciatica presence: without sciatica Spondylosis of lumbar region without myelopathy or radiculopathy M47.816 Spinal osteoarthritis complication: without myelopathy or radiculopathy Atypical mole D22.9 Vapes nicotine containing substance Z72.0 Viral URI J06.9 Chronic idiopathic constipation K59.04 Constipation type: chronic idiopathic constipation Opioid dependence in remission F11.21 Additional Codes CATIA-7 Assessment Billing - CATIA-7 Assessment Tool: CATIA-7 Assessment 90582 ([id number]) Vital Signs *Quality* - CPT code: 68858 - 4-10 Minutes ([id number]) Assessment & Plan Assessment & Plan (1) Encounter for general adult medical examination with abnormal findings: Code(s): Z00.01 - Encounter for general adult medical examination with abnormal findings Plan: . (2) MDD (major depressive disorder), recurrent episode: Code(s): F33.9 - Major depressive disorder, recurrent, unspecified Category: Medical Qualifiers: Major depression episode severity: mild Qualified Code(s): F33.0 - Major depressive disorder, recurrent, mild Plan: . (3) Laboratory exam ordered as part of routine general medical examination: Code(s): Z00.00 - Encounter for general adult medical examination without abnormal findings Category: Medical (4) CATIA (generalized anxiety disorder): Code(s): F41.1 - Generalized anxiety disorder Category: Medical Plan: . (5) Encounter for screening involving social determinants of health (SDoH): Code(s): Z13.9 - Encounter for screening, unspecified Category: Medical Plan: . (6) Hepatitis C: Code(s): B19.20 - Unspecified viral hepatitis C without hepatic coma Category: Medical Qualifiers: Viral hepatitis chronicity: chronic Hepatic coma status: without hepat ic coma Qualified Code(s): B18.2 - Chronic viral hepatitis C Plan: . (7) History of intravenous drug abuse: Code(s): Z87.898 - Personal history of other specified conditions Category: Social Hx Plan: . (8) Fusion of lumbosacral spine: Comment: Dr Keenan [address] [place] [address] Code(s): M43.27 - Fusion of spine, lumbosacral region Category: Medical Plan: . (9) Chronic back pain: Code(s): M54.9 - Dorsalgia, unspecified; G89.29 - Other chronic pain Category: Medical Qualifiers: Back pain location: low back pain Back pain laterality: midline Sciatica presence: without sciatica Qualified Code(s): M54.50 - Low back pain, unspecified; G89.29 - Other chronic pain Plan: . (10) Degenerative joint disease (DJD) of lumbar spine: Code(s): M47.816 - Spondylosis without myelopathy or radiculopathy, lumbar region Category: Medical Qualifiers: Spinal osteoarthritis complication: without myelopathy or radiculopathy Qualified Code(s): M47.816 - Spondylosis without myelopathy or radiculopathy, lumbar region Plan: . (11) Atypical mole: Comment: posterior r lower leg Code(s): D22.9 - Melanocytic nevi, unspecified Category: Medical Plan: . (12) Vapes nicotine containing substance: Code(s): Z72.0 - Tobacco use Category: Social Hx (13) Viral URI: Code(s): J06.9 - Acute upper respiratory infection, unspecified (14) Constipation: Code(s): K59.00 - Constipation, unspecified Category: Medical Qualifiers: Constipation type: chronic idiopathic constipation Qualified Code(s): K59.04 - Chronic idiopathic constipation Plan: . (15) Opioid dependence in remission: Code(s): F11.21 - Opioid dependence, in remission Category: Medical Plan: . Plan . Orders: Orders Hemoglobin A1c Today B19.20 - Unspecified viral hepatitis C without hepatic coma, Z00.00 - Encounter for general adult medical examination without abnormal findings TSH reflex Free T4 Today B19.20 - Unspecified viral hepatitis C without hepatic coma, Z00.00 - Encounter for general adult medical examination without abnormal findings Vitamin D 25-OH Total Today B19.20 - Unspecified viral hepatitis C without hepatic coma, Z00.00 - Encounter for general adult medical examination without abnormal findings Complete Blood Count no Diff Today B19.20 - Unspecified viral hepatitis C without hepatic coma, Z00.00 - Encounter for general adult medical examination without abnormal findings Comprehensive Met. Panel Today B19.20 - Unspecified viral hepatitis C without hepatic coma, Z00.00 - Encounter for general adult medical examination without abnormal findings IRON PROFILE Today B19.20 - Unspecified viral hepatitis C without hepatic coma, Z00.00 - Encounter for general adult medical examination without abnormal findings Microalbumin, Random (w Creat) Today B19.20 - Unspecified viral hepatitis C without hepatic coma, Z00.00 - Encounter for general adult medical examination without abnormal findings Hepatitis A,B,C Profile Today B19.20 - Unspecified viral hepatitis C without hepatic coma, Z00.00 - Encounter for general adult medical examination without abnormal findings CA echo transthoracic complete Today Z87.898 - Personal history of other specified conditions TDaP Immunization Today Z23 - Encounter for immunization Referrals Gastroenterology Referral B19.20 - Unspecified viral hepatitis C without hepatic coma Pain Management Referral G89.29 - Other chronic pain, M43.27 - Fusion of spine, lumbosacral region, M47.816 - Spondylosis without myelopathy or radiculopathy, lumbar region, M54.9 - Dorsalgia, unspecified Nurse Navigator Referral F33.9 - Major depressive disorder, recurrent, unspecified, F41.1 - Generalized anxiety disorder, Z13.9 - Encounter for screening, unspecified Dermatology Referral D22.9 - Melanocytic nevi, unspecified Medications: New diclofenac sodium 50 mg PO Q12H PRN 30 tabs 0RF pain lactulose use sparingly for constipation 10 grams (15 mL) PO BID PRN 3,785 mL 0RF constipation escitalopram oxalate 5 mg PO DAILY 30 tabs 1RF
[2024-08-04 11:03] VITALS: BP 98/64; PULSE 83; RESP 13; O2SAT 98; BMI 27.4
== END 2024-08-04 11:51 | disposition home or self-care (01) ==
PROVIDERS: Visit Provider Nurse Practitioner Family
DX: Z00.00 Encounter for general adult medical examination without abnormal findings (principal); F33.0 Major depressive disorder, recurrent, mild; B18.2 Chronic viral hepatitis C; F41.1 Generalized anxiety disorder; F11.21 Opioid dependence, in remission; M43.27 Fusion of spine, lumbosacral region; Z87.898 Personal history of other specified conditions; M54.50 Low back pain, unspecified; G89.29 Other chronic pain; M47.816 Spondylosis without myelopathy or radiculopathy, lumbar region; D22.9 Melanocytic nevi, unspecified; Z23 Encounter for immunization

== ENCOUNTER → 2024-08-04 10:55 | Outpatient (BNVA) | payer BC, SELFPAY | PROVIDERS: Visit Provider Nurse Practitioner Family | DX: Z00.01 Encounter for general adult medical examination with abnormal findings (principal); F33.0 Major depressive disorder, recurrent, mild; F41.1 Generalized anxiety disorder; B18.2 Chronic viral hepatitis C; M43.27 Fusion of spine, lumbosacral region; Z23 Encounter for immunization; G89.29 Other chronic pain; M54.50 Low back pain, unspecified; M47.816 Spondylosis without myelopathy or radiculopathy, lumbar region; D22.71 Melanocytic nevi of right lower limb, including hip; J06.9 Acute upper respiratory infection, unspecified; K59.04 Chronic idiopathic constipation; F11.21 Opioid dependence, in remission; Z87.898 Personal history of other specified conditions; Z72.0 Tobacco use | CPT/HCPCS: 90471; 90715; 96127 ==

== ENCOUNTER 2024-08-04 11:55 | Outpatient (REF) | payer BC, SELFPAY ==
[2024-08-04 14:18] LABS: Hematocrit 39.9 % (37.0-47.0); Hemoglobin 12.8 g/dl (12.0-16.0); Mean Corpuscular HGB Conc 32.1 g/dl (31.0-35.0); Mean Corpuscular Hemoglobin 28.7 pg (27.0-33.0); Mean Corpuscular Volume 89.5 fL (80.0-98.0); Mean Platelet Volume 10.6 fL (9.4-12.3); Platelet Count 352 X10*3/uL (160-400); Red Blood Count 4.46 X10*6/uL (4.20-5.50); White Blood Count 5.9 X10*3/uL (4.8-10.8)
[2024-08-04 14:26] LABS: Estimated Average Glucose 94 mg/dL; Hemoglobin A1C 101.1935 umol/L; Hemoglobin A1c % 4.9 % (<6.0); Total Hemoglobin (HGBA1C) 3319.4154 umol/L
[2024-08-04 14:38] LABS: Alanine Aminotransferase 9 U/L (0-31); Albumin Level 4.2 g/dL (3.5-5.0); Alkaline Phosphatase 63 U/L (39-117); Anion Gap 11 (12-20); Aspartate Amino Transferase 15 U/L (5-31); Bilirubin Total 0.4 mg/dL (0.0-1.0); Blood Urea Nitrogen 5 mg/dL (9-16); Calcium 9.4 mg/dL (8.4-10.2); Carbon Dioxide 29 mmol/L (22-29); Chloride 106 mmol/L (96-108); Estimated Glomerular Filt Rate > 60; Glucose Random 85 mg/dL (60-115); Iron 66 mcg/dL (30-160); Percent Iron Saturation 30 % (15-50); Potassium 3.6 mmol/L (3.3-5.1); Sodium 142 mmol/L (135-145); Total Iron Binding Capacity 221 mcg/dL (228-428); Total Protein 7.3 g/dL (6.5-8.0); Unsaturated Iron Binding 155 ug/dL
[2024-08-04 14:52] LABS: Creatinine Urine 329.83 mg/dL; Microalbum/Creatinine Ratio Ur 5.1 ug/mg cr (<30)
[2024-08-04 14:56] LABS: TSH reflex Free T4 0.37 uIU/mL (0.32-4.0); Vitamin D 25-OH Total 51.7 ng/mL (>30)
[2024-08-05 04:40] LABS: HBS Num1 3.38 mIU/mL (0-7.99); HBc Num1 0.15 S/CO (0.00-0.79); HBsAGNum1 0.44 S/CO (0.00-0.99); Hepatitis A Antibody IgM 0.25 Index (0-0.79); Hepatitis B Core Antibody Nonreactive (Nonreactive); Hepatitis B Surface Antigen Negative (Negative); ~HepC Num1 12.73 S/CO (0.00-0.79); ~Hepatitis A Antibody IgM Nonreactive (Nonreactive); ~Hepatitis B Surface Antibody NONREACTIVE (Nonreactive); ~Hepatitis C Antibody Reactive (Nonreactive)
== END 2024-08-04 11:56 | disposition home or self-care (01) ==
LOC: HO.WFDLDS 11:55
PROVIDERS: Visit Provider Nurse Practitioner Family
DX: Z00.00 Encounter for general adult medical examination without abnormal findings (principal); B19.20 Unspecified viral hepatitis C without hepatic coma
CPT/HCPCS: 36415; 80053; 82043; 82306; 82570; 83036; 83540; 84443; 85027; 86704; 86706; 86709; 86803; 87340

== ENCOUNTER 2024-12-21 14:48 | Outpatient (REF) | payer BC, SELFPAY ==
[2024-12-21 16:39] LABS: Amphetamine Screen Urine Not Detected (Not Detect); Barbiturates, Urine Not Detected (Not Detect); Benzodiazepines Screen Urine Not Detected (Not Detect); Buprenorphine Scr Positive (Not Detect); Cannabinoid Screen Urine POSITIVE (Not Detect); Cocaine Screen Urine Not Detected (Not Detect); Fentanyl, urine Not Detected (Not Detect); Methadone Screen, Urine Not Detected (Not Detect); Opiate Screen Urine Not Detected (Not Detect); Oxycodone Screen Urine Not Detected (Not Detect); Phencyclidine Screen Urine Not Detected (Not Detect)
--- OUTSIDE RECORDS SUMMARY | 2024-12-21 17:03 | XMS_ITS | Clinical Summary ---
Author Organization [employer] Address [address] [place] [address] Care Team Providers Care Shield Installer Name Role Phone No, Pcp Primary Care Provider Unavailabl e Allergies Active Allergy Reactions Criticality Noted Date Comments Penicillins 02/14/2021 Medications buprenorphine-na loxone (SUBOXONE) 8-[address] under the tongue. Active Active Problems Problem Noted Date Diagnosed Date COVID-19 02/14/2021 Family History Medical History Relation Comments Heart disease Father Addiction problem Mother Relation Status Comments Father Alive Mother Social History Tobacco Use Types Packs/Day Years Used Date Smoking Tobacco: Every Day Smokeless Tobacco: Never Alcohol Use Standard Drinks/Week Comments Not Currently 0 (1 standard drink = 0.6 oz pur e alcohol) PHQ-2 Answer Date Recorded Depression Risk (PHQ2) Score 2 Comments Unknown Sex and Gender Information Value Date Recorded Sex Assigned at Not on file Legal Sex Female 7:14 AM [facility] Gender Identity Not on file Sexual Orientation Not on file Last Filed Vital Signs Vital Sign Reading Time Taken Comments Blood Pressure 132/86 02/14/2021 12:02 PM EDT Pulse 100 02/14/2021 12:02 PM EDT Temperature 36.7 ??C (98 ??F) 02/14/2021 12:02 PM EDT Respiratory Rate - - Oxygen Saturation 99% 02/14/2021 12:02 PM EDT Inhaled Oxygen Concentration - - Weight 85.1 kg (187 lb 9.6 oz) 02/14/2021 12:02 PM EDT Height 162.7 cm (5' 4.06 ) 02/14/2021 12:02 PM E DT Body Mass Index 32.15 02/14/2021 12:02 PM EDT Plan of Treatment Health Maintenance Due Date Last Done Comments PHQ-9 Depression Screen 2000 Annual Preventive Exam 2006 Complete Annual HRA 2006 CATIA-7 Anxiety Screen 2006 DTaP,Tdap,and Td Vaccines (1 - Tdap) 2007 Cervical Cancer Screening (Pap/HPV) 2009 COVID-19 Vaccine ( - 2023-25 season) 2024 Influenza Vaccine (#1) 2024 RSV Vaccine (SCDM) (1 - 1-dose 75+ series) 2063 Hepatitis C Screening Completed 12/18/2018, 019 Insurance [employer] Care Teams Shield Installer Relationship Specialty Start Date End Date No, Pcp PCP - General 02/14/21
--- OUTSIDE RECORDS SUMMARY | 2024-12-21 17:03 | XMS_ITS | Encounter Summary ---
Author Organization [email or web address] Address [address] [place] [address] [address] [place] [address] Care Team Providers Care Land Law Examiner Name Role Phone Unavailable Primary Care Provider Unavailabl e Reason for Visit * Reason Comments Med Refill Encounter Details Date Type Department Care Team (Late st Contact Info) Description 06/13/2023 Refill [facility] [address] [place] [id number] Celio Witt MD [address] [place] [phone] Social History Tobacco Use Types Packs/Day Years Used Date Smoking Tobacco: Former Cigarettes Smokeless Tobacco: Never Comments Unknown Sex and Gender Information Value Date Recorded Sex Assigned at Female 08/27/2022 10:21 AM EDT Legal Sex Female 10:21 AM EDT Gender Identity Female 08/27/2022 10:21 AM EDT Sexual Orientation Straight 08/27/2022 10 :21 AM EDT documented as of this encounter Plan of Treatment Upcoming Encounters Date Type Department Care Team (Late st Contact Info) Description 12/28/2024 1:45 PM EST Clinical Support [facility] [address] [place] [phone] Bette Lynch, RN [address] [place] [phone] documented as of this encounter Visit Diagnoses Not on filedocumented in this encounter
--- OUTSIDE RECORDS SUMMARY | 2024-12-21 17:03 | XMS_ITS | Clinical Summary ---
Author Organization [employer] Address [address] [place] [address] Care Team Providers Care Bin Filler Name Role Phone Unavailable Primary Care Provider Unavailabl e Allergies Active Allergy Reactions Criticality Noted Date Comments Penicillins 10/15/2022 Medications * This document contains information received from the source organization and may not represent a complete record from that organization. buprenorphine-nal oxone (Suboxone) 4-1 MG per sublingual filmIndications:O pioid dependence, uncomplicated (CMS/HCC) Place 1 Film under the tongue 2 times daily for 7 days. 14 Film 11/13/19 24 Active albuterol 108 (90 Base) MCG/ACT inhaler Inhale 2 puffs every 4 (four) hours if needed for wheezing or shortness of breath. 18 g 5 02/11/20 24 025 Active fluticasone (Flovent) 110 MCG/ACT inhaler Inhale 1 puff in the morning and at bedtime. Rinse mouth with water after use to reduce aftertaste and incidence of candidiasis. Do not swallow. 12 g 5 02/11/20 24 025 Active Spacer/Aero-Holdi ng Chambers (OptiChamber Elizabet) misc 1 each every 4 (four) hours if needed (asthma). 2 each 3 02/11/20 24 Active buprenorphine ER (Sublocade) 100 mg/0.5mL injectionIndicati ons:Opioid dependence, uncomplicated (CMS/HCC) Inject 0.5 mL (1 each) under the skin every month to absorb continually. Dose to be administered by provider q 28 days 0.5 mL 5 08/06/20 24 025 Active Buprenorphine HCl-Naloxone HCl (Suboxone) 8-2 MG SL filmIndications:O pioid dependence, uncomplicated (CMS/HCC) Place 1 Film under the tongue Once per day for 7 days. 7 Film 08/11/20 24 Active ciprofloxacin-hyd rocortisone (Cipro HC Otic) otic suspension Administer 3 drops into each ear 2 times daily for 7 days. 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 Date Type Department Care Team Description 11/18/2024 Orders Only [facility] [address] [place] [phone] Celio Witt MD 11/17/2024 1:00 PM EST Office Visit [facility] [address] [place] [phone] Celio Witt MD Uncomplicated opioid dependence (CMS/HCC) (Primary Dx); Acute otitis externa of right ear, unspecified type 11/17/2024 Travel 11/05/2024 Telephone [facility] [address] [place] [phone] Susan Murillo RN 10/19/2024 9:00 AM EST Clinical Support [address] [phone] Susan Murillo RN Uncomplicated opioid dependence (CMS/HCC) (Primary Dx) 10/19/2024 Travel 09/23/2024 1:00 PM EST Office Visit [facility] [address] [place] [phone] Susan Murillo RN Opioid type dependence, continuous (CMS/HCC) (Primary Dx) 09/23/2024 Travel from Last 3 Months Social History Tobacco Use Types Packs/Day Years Used Date Smoking Tobacco: Former Cigarettes Smokeless Tobacco: Never Tobacco Cessation:Counseling Given: Not Answered Depression Answer Date Recorded Patient Health Questionnaire-9 Score 7 11/19/2024 Patient Health Questionnaire-9 Score 7 11/19/2024 Last PHQ-9: Questionnaire Data Not on file 0 11/19/2024 Depression Answer Date Recorded Patient Health Questionnaire-2 Score 2 11/19/2024 Comments Unknown Sex and Gender Information Value Date Recorded Sex Assigned at Female 08/27/2022 10:21 AM EDT Legal Sex Female 10:21 AM EDT Gender Identity Female 08/27/2022 10:21 AM EDT Sexual Orientation Straight 08/27/2022 10 :21 AM EDT Last Filed Vital Signs Vital Sign Reading Time Taken Comments Blood Pressure 138/84 04/02/2022 12:06 AM EDT Pulse 88 04/02/2022 12:06 AM EDT Temperature - - Respiratory Rate - - Oxygen Saturation - - Inhaled Oxygen Concentration - - Weight - - Height - - Body Mass Index - - Plan of Treatment Upcoming Encounters Date Type Department Care Team (Late st Contact Info) Description 12/28/2024 1:45 PM EST Clinical Support [facility] [address] [place] [address] Bette Lynch, RN [address] [place] [address] Health Maintenance Due Date Last Done Comments SDOH Screening 1988 Alcohol/Substance Use Screening 2000 Family Planning (PISQ) 2003 Pneumococcal Vaccine: Pediatrics (0 to 5 Years) and At-Risk Patients (6 to 49) Years) (1 of 2 - PCV) 2007 Pap Smear 2009 Cervical Cancer Screening 2018 HPV/Cotest 2018 COVID-19 Vaccine (2 - season) 2024 06/13/2022 Influenza Vaccine (#1) 2024 Tobacco Screening 11/17/2025 11/17/2024 Depression Screening 11/19/2025 11/19/2024, 11/19/19 DTaP/Tdap/Td Vaccines (8 - Td or Tdap) 08/04/2034 08/04/2024, 12/10/2012, 11/14/2000, Additional history exists Zoster Vaccines (1 of 2) 2038 RSV Patients and Patients Aged 60 years or older (1 - 1-dose 75+ series) 2063 HIB Vaccines Completed 02/14/1990, 02/14/1990 IPV Vaccines Completed 03/03/1993, 01/27, 02/14/1990, Additional history exists Hepatitis B Vaccines Completed 05/11/1999, 12/12/1998, 07/12/1998 HIV Screening Completed 03/08/2022 Hepatitis C Screening Completed 03/08/2022 HPV Vaccines Aged Out No longer eligi ble based on patient's age to complete this topic Hepatitis A Vaccines Aged Out No long er eligible based on patient's age to complete this topic Meningococcal Vaccine Aged Out No efraín samantha eligible based on patient's age to complete this topic RSV under 20 months Aged Out No longe r eligible based on patient's age to complete this topic Rotavirus Vaccines Aged Out No longer eligible based on patient's age to complete this topic Procedures Procedure Name Priority Date/Time Associated Diagnosis Comments DRUG MONITOR, PANEL 1, SCREEN, URINE Routine 12/21/2024 2:50 PM EST Generalized anxiety disorder with panic attacks POCT ANNE-MARIE-14 URINE DRUG SCREEN Routine 11/17/2024 1:08 PM EST Uncomplicated opioid dependence (CMS/HCC) POCT NANE-MARIE-14 URINE DRUG SCREEN Routine 10/19/2024 9:58 AM EST Uncomplicated opioid dependence (CMS/HCC) POCT ANNE-MARIE-14 URINE DRUG SCREEN Routine 09/23/2024 1:06 PM EST Opioid type dependence, continuous (CMS/HCC) ZZZ HISTORICAL HEPATITIS C AB W/REFL TO HCV RNA, QN, PCR Routine 03/08/2022 8:20 AM EDT HIV 1/2 ANTIGEN/ANTIBODY, FOURTH GENERATION W/RFL Routine 03/08/2022 8:20 AM EDT from Last 3 Months or Most Recently Relevant to Health Maintenance Results * (ABNORMAL) Drug Monitoring, Panel 1, Screen, Urine (12/21/2024 2:50 PM EST) Opiate Screen Urine Not Detected Not Detect [facility] Comment:Opiate cut-off is 30 0 ng/mL.Positive results are unconfirmed and should not be used fornon-medical purposes. Barbiturates, Urine Not Detected Not Detect [facility] Comment:Barbiturate cut-off is 200 ng/mL.Positive results are unconfirmed and should not be used fornon-medical purposes. Phencyclidine Screen Urine Not Detected Not Detect [facility] Comment:Phencyclidine cut-of f is 25 ng/mL.Positive results are unconfirmed and should not be used fornon-medical purposes. Amphetamine Screen Urine Not Detected Not Detect [facility] Comment:Amphetamine cut-off is 1000 ng/mL.Positive results are unconfirmed and should not be used fornon-medical purposes. Benzodiazepines Screen Urine Not Detected Not Detect [facility] Comment:Benzodiazepine cut-o ff is 200 ng/mL.Positive results are unconfirmed and should not be used fornon-medical purposes. Cocaine Screen Urine Not Detected Not Detect [facility] Comment:Cocaine cut-off is 3 00 ng/mL.Positive results are unconfirmed and should not be used fornon-medical purposes. Cannabinoid Screen Urine POSITIVE(A) Not Detect [facility] Comment:Cannabinoid cut-off is 50 ng/mL.Positive results are unconfirmed and should not be used fornon-medical purposes. Methadone Screen, Urine Not Detected Not Detect ng/mL [facility] Comment:Methadone cut-off is 300 ng/mL.Positive results are unconfirmed and should not be used fornon-medical purposes. FENTANYL URINE Not Detected Not Detect [facility] Comment:Fentanyl cut-off is 1 ng/mL.Positive results are unconfirmed and should not be used fornon-medical purposes. Oxycodone Urine Screen Not Detected Not Detect ng/mL [facility] Comment:Oxycodone cut-off is 100 ng/mL.Positive results are unconfirmed and should not be used fornon-medical purposes. Buprenorphine Screen Positive(A) Not Detect ng/mL [facility] Comment:Buprenorphine cut-of f is 5 ng/mL.Positive results are unconfirmed and should not be used fornon-medical purposes. Urine (Urine, Random) 12/21/2024 2:50 PM EST 12/21/2024 4:16 PM EST [place] Dickinson PM[facility]NP LAB URINE ORDERABLES Final Re sult [facility] [address] [place] [address] [phone] * POCT ANNE-MARIE-14 Urine Drug Screen (11/17/2024 1:08 PM EST) Only the most recent of3 resultswithin the time period is included. [facility] THC Positive Cocaine Screen, Urine Negative Opiate Screen, Urine Negative Methamphetamine Screen Urine Negative Amphetamine Screen, Urine Negative Benzodiazepines Screen, Urine Negative Barbiturate Screen, Urine Negative Methadone Screen, Urine Negative Buprenophine Screen, Urine Positive TCA, Urine Negative MDMA Urine Negative ng/mL Oxycodone Screen, Urine Negative Phencyclidine (PCP), Urine Negative Propoxyphene, Urine Negative Fentanyl, Urine Negative Urine Urine specimen obtained by clean catch procedure / Unknown 11/17/2024 1:08 PM EST Celio Witt MD POINT OF CARE TEST ENTER/EDIT OR DERABLES Final Result * (ABNORMAL) HEPATITIS C AB W/REFL TO HCV RNA, QN, PCR (03/08/2022 8:20 AM EDT) [facility] HEPATITIS C ANTIBODY REACTIVE( A) NON-REACT K[facility]IE [facility] INDEX 31.50(H) <1.00 [facility] Comment: ?? Based on this result, the sample will be tested for HCV RNA by a Nucleic Acid Amplification Test (NAAT) to determine if the patient has a current active infection. ?? 03/08/2022 8:20 AM EDT us Celio Witt MD HISTORICAL/NON ORDERABLE LABS Fi nal Result [facility] [address] * HIV 1/2 ANTIGEN/ANTIBODY,FOURTH GENERATION W/RFL (03/08/2022 8:20 AM EDT) HIV-1/2 ANTIGEN AND ANTIBODIES, 4TH GENERATION W/ REFLEX NON-REACT KACIE NON-REACT KACIE [facility] Comment: HIV-1 antigen and HIV-1/HIV-2 antibodies were not detected. There is no laboratory evidence of HIV infection. ?? PLEASE NOTE: This information has been disclosed to you from records whose confidentiality may be protected by state law. ??If your state requires such protection, then the state law prohibits you from making any further disclosure of the information without the specific written consent of the person to whom it pertains, or as otherwise permitted by law. A general authorization for the release of medical or other information is NOT sufficient for this purpose. ? For additional information please refer to http://education.Trendyol/faq/TFX678 (This link is being provided for informational/ educational purposes only.) ? The performance of this assay has not been clinically validated in patients less than 2 years old. ?? 03/08/2022 8:20 AM EDT us Celio Witt MD LAB BLOOD ORDERABLES Final Resul t [facility] [address] from Last 3 Months or Most Recently Relevant to Health Maintenance Insurance [facility] PPO
--- OUTSIDE RECORDS SUMMARY | 2024-12-21 17:03 | XMS_ITS | Encounter Summary ---
Author Organization [employer] Address [address] [place] [address] Care Team Providers Care Hand Mixer Name Role Phone Unavailable Primary Care Provider Unavailabl e Encounter Details Date Type Department Care Team (Late st Contact Info) Description 11/15/2022 Orders Only [facility] [address] [place] [address] Celio Witt MD [address] [place] [address] Drug-induced constipation (Primary Dx) Social History Tobacco Use Types Packs/Day Years Used Date Smoking Tobacco: Never Assessed Comments Unknown Sex and Gender Information Value Date Recorded Sex Assigned at Female 08/27/2022 10:21 AM EDT Legal Sex Female 10:21 AM EDT Gender Identity Female 08/27/2022 10:21 AM EDT Sexual Orientation Straight 08/27/2022 10 :21 AM EDT COVID-19 Exposure Response Date Recorded In the last 10 days, have yo u been in contact with someone who was confirmed or suspected to have Coronavirus/COVID-19? No / Unsure 11/13/2022 3:39 PM EST documented as of this encounter Plan of Treatment Upcoming Encounters Date Type Department Care Team (Late st Contact Info) Description 12/28/2024 1:45 PM EST Clinical Support [facility] [address] [place] [address] Bette Lynch, HELL[place] [address] [place] [address] documented as of this encounter Visit Diagnoses Diagnosis Drug-induced constipation- Primary Other constipation documented in this encounter
[2024-12-21 17:20] LABS: Alanine Aminotransferase 15 U/L (0-31); Albumin Level 4.5 g/dL (3.5-5.0); Aspartate Amino Transferase 25 U/L (5-31); Bilirubin Direct 0.2 mg/dL (0.0-0.5); Bilirubin Total 0.7 mg/dL (0.0-1.0); Total Protein 7.7 g/dL (6.5-8.0)
[2024-12-21 17:54] LABS: Alkaline Phosphatase 57 U/L (39-117)
[2024-12-22 08:15] LABS: Syphilis Screen Nonreactive (Nonreactive)
[2024-12-22 08:38] LABS: HIV AB/AG Nonreactive (Nonreactive); HIV Num 1 0.08 S/CO (0.00-0.99); ~HepC Num1 13.67 S/CO (0.00-0.79); ~Hepatitis C Antibody Reactive (Nonreactive)
[2024-12-23 13:13] LABS: HCV Log PCR <1.18 NOT DETECTED Log IU/mL (NOT DETECTED); HepC Viral Load <15 NOT DETECTED IU/mL (NOT DETECTED)
[2024-12-24 12:54] LABS: TS Negative Control Passed; TS Panel A 0; TS Panel B 0; TS Positive Control Passed; TSpotTB Negative (Negative)
== END 2024-12-21 14:49 | disposition home or self-care (01) ==
LOC: HO.HHCL 14:48
PROVIDERS: Emergency Medicine; Visit Provider Registered Nurse
DX: F11.20 Opioid dependence, uncomplicated (principal); F41.1 Generalized anxiety disorder; F41.0 Panic disorder [episodic paroxysmal anxiety]
CPT/HCPCS: 36415; 80076; 80307; 86481; 86780; 86803; 87389; 87522